=== PATIENT | male | born 1980 | race African-American/Black ===

== ENCOUNTER 2018-09-02 22:04 | Emergency (ER) | payer MEDICAID, OTHER ==
[~2018-09-02] VITALS: Ht 175.3 cm; Wt 102.0 kg
[2018-09-03] MEDS ORDERED: KETOROLAC 30MG/ML VIAL IM ONE (02:30)
[2018-09-03 04:52] VITALS: BP 128/81
== END 2018-09-03 05:00 | disposition home or self-care (01) ==
LOC: ER 22:04
DX: J02.9 Acute pharyngitis, unspecified (principal); R59.1 Generalized enlarged lymph nodes; J06.9 Acute upper respiratory infection, unspecified; F12.10 Cannabis abuse, uncomplicated; F17.200 Nicotine dependence, unspecified, uncomplicated
CPT/HCPCS: 71045; 87070; 87430; 87804; 96372; 99284; J1885; Z7610

== ENCOUNTER 2021-02-28 20:23 | Emergency (ER) | payer MEDICAID ==
[2021-02-28] MEDS ORDERED: IBUP-2029 MT (23:57)
[2021-02-28] MEDS ORDERED: CEPH500C2 MT (23:57)
== END 2021-02-28 22:10 | disposition left against medical advice (07) ==
LOC: ER 20:23
DX: Z53.21 Procedure and treatment not carried out due to patient leaving prior to being seen by health care provider (principal)

== ENCOUNTER 2021-02-28 22:40 | Emergency (ER) | payer MEDICAID ==
[~2021-02-28] VITALS: Ht 175.3 cm; Wt 91.0 kg
[2021-02-28 22:50] VITALS: BP 120/60
[2021-02-28] MEDS ORDERED: IBUPROFEN 800MG TABLET PO ONE (23:45)
[2021-02-28] MEDS ORDERED: CEPHALEXIN 250MG CAPSULE PO ONE (23:45)
[2021-02-28] MEDS ORDERED: CEPH500C2 MT (23:57)
[2021-02-28] MEDS ORDERED: IBUP-2029 MT (23:57)
== END 2021-03-01 00:35 | disposition home or self-care (01) ==
LOC: ER 22:40
DX: K64.9 Unspecified hemorrhoids (principal); F12.10 Cannabis abuse, uncomplicated
CPT/HCPCS: 99283